=== PATIENT | female | born 1995 | race Two or more races ===

== ENCOUNTER 2017-08-29 09:00 | Emergency (ER) | payer OTHER ==
[~2017-08-29] VITALS: Ht 172.7 cm; Wt 74.8 kg
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
[2017-08-29] MEDS ORDERED: silver sulfADIAZINE 1% CREAM 50GM JAR. TP ONE (09:45)
[2017-08-29 09:46] VITALS: BP 104/66
== END 2017-08-29 09:46 | disposition home or self-care (01) ==
LOC: ER 09:00
DX: T22.211A Burn of second degree of right forearm, initial encounter (principal); X15.2XXA Contact with hotplate, initial encounter; Y93.G3 Activity, cooking and baking; Y99.8 Other external cause status; Y92.89 Other specified places as the place of occurrence of the external cause
CPT/HCPCS: 16020; 99284

== ENCOUNTER 2018-06-07 21:55 | Emergency (ER) | payer OTHER ==
[~2018-06-07] VITALS: Ht 172.7 cm; Wt 74.8 kg
--- NOTE | 2018-06-07 21:58 | ED.ADGEN ---
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 ear pain. Pt. has been attempting to clear ear with Q-tips. Pt. has eroded both ear canals and impacted the wax against Rt TM. Pt. denies any history immunosuppression. Is up-to-date with vaccinations. No recent overseas assignments. Patient assigned to [employer]. Patient normally healthy. Patient follows at [facility]. Review of Systems Review of Systems Constitutional: Denies fever or chills [] Eyes: Denies change in visual acuity, redness, or eye pain [] HENT: Denies nasal congestion or sore throat []complains of right ear pain Respiratory: Denies cough or shortness of breath [] Cardiovascular: No additional information not addressed in HPI [] GI: Denies abdominal pain, nausea, vomiting, bloody stools or diarrhea [] : Denies dysuria or hematuria [] Musculoskeletal: Denies back pain or joint pain [] Integument: Denies rash or skin lesions [] Neurologic: Denies headache, focal weakness or sensory changes [] Endocrine: Denies polyuria or polydipsia [] All other systems were reviewed and found to be within normal limits, except as documented in this note. Family History Family History Noncontributory Current Medications Current Medications Current Medications Medications (Trade) Dose Ordered Sig/Yudi Start Time Stop Time Status Last Admin Dose Admin Cephalexin HCl (Keflex) 500 mg 1X ONCE 06/07/18 23:00 06/07/18 23:00 DC 06/07/18 22:26 500 MG Neomycin/ Polymyxin/ Hydrocortisone (Cortisporin Otic) 2 drop 1X ONCE 06/07/18 23:00 06/07/18 23:00 DC 06/07/18 22:27 2 DROP Allergies Allergies Allergies Coded Allergies Type Severity Reaction Last Updated Verified No Known Drug Allergies 08/29/17 No Physical Exam Physical Exam Constitutional: Well developed, well nourished, moderately acute distress, non- toxic appearance. [] HENT: Normocephalic, atraumatic, bilateral external ears normal, oropharynx moist, no oral exudates, nose normal. []Escalated ear canals and impacted wax right TM Eyes: PERRLA, EOMI, conjunctiva normal, no discharge. [] Neck: Normal range of motion, no tenderness, supple, no stridor. [] Cardiovascular:Heart rate regular rhythm, no murmur [] Lungs & Thorax: Bilateral breath sounds clear to auscultation [] Abdomen: Bowel sounds normal, soft, no tenderness, no masses, no pulsatile masses. [] Skin: Warm, dry, no erythema, no rash. [] Back: No tenderness, no CVA tenderness. [] Extremities: No tenderness, no cyanosis, no clubbing, ROM intact, no edema. [] Neurologic: Alert and oriented X 3, normal motor function, normal sensory function, no focal deficits noted. [] Psychologic: Affect anxious, judgement normal, mood normal. [] Current Patient Data Vital Signs Vital Signs Date Time Temp Pulse Resp B/P (MAP) Pulse Ox O2 Delivery O2 Flow Rate FiO2 06/07/18 22:19 98.1 61 16 98 Room Air EKG EKG [] Radiology/Procedures Radiology/Procedures [] Course & Med Decision Making Course & Med Decision Making Pertinent Labs and Imaging studies reviewed. (See chart for details). Patient not to clean ears with Q-tips. Patient may use [id number] Cerumenex or equivalent. Patient use Cortisporin ear drops 2 drops right ear 4 times a day. Patient take Keflex 500 mg 3 times a day. Follow-up primary care. Take Tylenol and ibuprofen for pain. For marked pain may take Vicoprofen up times a day. Return if any concerns. Stop cleaning ears Q tips. [] Final Impression Final Impression 1. Rt ear pain[] 2. Bilateral ear canal excoriations 3. Impacted wax right TM Dragon Disclaimer Dragon Disclaimer This electronic medical record was generated, in whole or in part, using a voice recognition dictation system. Discharge Summary Visit Information Final Diagnosis Problems Medical Problems: (1) Otitis Status: Acute Brief Hospital Course Allergies Allergies Coded Allergies Type Severity Reaction Last Updated Verified No Known Drug Allergies 08/29/17 No Vital Signs Vital Signs Date Time Temp Pulse Resp B/P (MAP) Pulse Ox O2 Delivery O2 Flow Rate FiO2 06/07/18 22:19 98.1 61 16 98 Room Air Brief Hospital Course Ms. Torrez is a 22 old female who presented with bilateral ear excoriations from cleaning with Q-tips. Has impacted wax on right TM Discharge Information Condition at Discharge: Improved, Stable Disposition/Orders: D/C to Home Dischare Medications Current Medications Cephalexin HCl (Keflex) 500 mg 1X ONCE PO Last administered on 06/07/18at 22:26 ; Admin Dose 500 MG; Start 06/07/18 at 23:00; Stop 06/07/18 at 23:00; Status DC Neomycin/ Polymyxin/ Hydrocortisone (Cortisporin Otic) 2 drop 1X ONCE AD Last administered on 06/07/18at 22:27; Admin Dose 2 DROP; Start 06/07/18 at 23:00; Stop 06/07/18 at 23:00; Status DC Active Scripts Active Keflex (Cephalexin) 500 Mg Capsule 500 Mg PO TID 7 Days Hydrocodone-Ibuprofen 7.5-200 (Hydrocodone/Ibuprofen) 1 Each Tablet 1 Tab PO PRN Q6HRS PRN Dragon Disclaimer This chart was dictated in whole or in part using Voice Recognition software in a busy, high-work load, and often noisy Emergency Department environment. It may contain unintended and wholly unrecognized errors or omissions. SARA MCKEON MD Jun 07, 2018 21:58
[2018-06-07 22:19] VITALS: BP 108/61
[2018-06-07] MEDS ORDERED: CEPH-264 PO (22:20)
[2018-06-07] MEDS ORDERED: HYDR-1179 PO (22:20)
[2018-06-07] MEDS ORDERED: CEPHALEXIN 250 MG CAPSULE PO ONE (23:00)
[2018-06-07] MEDS ORDERED: NEOMYCIN/POLYMYXIN/HC OTIC SUSPENSION 10ML BOTTLE. AD ONE (23:00)
== END 2018-06-07 22:30 | disposition home or self-care (01) ==
LOC: ER 21:55
DX: S00.412A Abrasion of left ear, initial encounter (principal); S00.411A Abrasion of right ear, initial encounter; H66.91 Otitis media, unspecified, right ear; H61.21 Impacted cerumen, right ear; X58.XXXA Exposure to other specified factors, initial encounter; Y93.89 Activity, other specified; Y92.89 Other specified places as the place of occurrence of the external cause; Y99.8 Other external cause status
CPT/HCPCS: 99283

== ENCOUNTER 2018-11-02 20:18 | Emergency (ER) | payer OTHER ==
[~2018-11-02] VITALS: Ht 172.7 cm; Wt 81.2 kg
[~2018-11-02 20:18] MED LIST: CEPH-264 PO; HYDR-1179 PO
[2018-11-02 21:20] VITALS: BP 108/70
[2018-11-02] MEDS ORDERED: CIPR7.5D EACH EAR (21:33)
--- NOTE | 2018-11-02 21:33 | PHYS DOC ---
Past History Past Medical History: No Pertinent History Past Surgical History: No Surgical History Smoking: Non-smoker Alcohol Use: None Drug Use: None Adult General Chief Complaint Chief Complaint: EARACHE/EAR PAIN HPI HPI 23-year-old female presents with left ear pain. The patient [place] [employer] [place]. She has had increasing pain since that time. Her ears now extremely painful. She also has some decreased hearing on that side. She has had otitis externa once previously on the right side. Patient uses Q-tips. She denies fever or chills. Review of Systems Review of Systems Constitutional: Denies fever or chills [] Eyes: Denies change in visual acuity, redness, or eye pain [] HENT: Denies nasal congestion or sore throat. Left ear pain [] Respiratory: Denies cough or shortness of breath [] Cardiovascular: No additional information not addressed in HPI [] GI: Denies abdominal pain, nausea, vomiting, bloody stools or diarrhea [] : Denies dysuria or hematuria [] Musculoskeletal: Denies back pain or joint pain [] Integument: Denies rash or skin lesions [] Neurologic: Denies headache, focal weakness or sensory changes [] Endocrine: Denies polyuria or polydipsia [] All other systems were reviewed and found to be within normal limits, except as documented in this note. Allergies Allergies Allergies Coded Allergies Type Severity Reaction Last Updated Verified No Known Drug Allergies 08/29/17 No Physical Exam Physical Exam Constitutional: Well developed, well nourished, no acute distress, non-toxic appearance. [] HENT: Normocephalic, atraumatic, bilateral external ears normal, oropharynx moist, no oral exudates, nose normal. Left ear canal erythematous and tender to touch [] Eyes: PERRLA, EOMI, conjunctiva normal, no discharge. [] Neck: Normal range of motion, no tenderness, supple, no stridor. [] Cardiovascular:Heart rate regular rhythm, no murmur [] Lungs & Thorax: Bilateral breath sounds clear to auscultation [] Abdomen: Bowel sounds normal, soft, no tenderness, no masses, no pulsatile masses. [] Skin: Warm, dry, no erythema, no rash. [] Back: No tenderness, no CVA tenderness. [] Extremities: No tenderness, no cyanosis, no clubbing, ROM intact, no edema. [] Neurologic: Alert and oriented X 3, normal motor function, normal sensory function, no focal deficits noted. [] Psychologic: Affect normal, judgement normal, mood normal. [] Current Patient Data Vital Signs Vital Signs Date Time Temp Pulse Resp B/P (MAP) Pulse Ox O2 Delivery O2 Flow Rate FiO2 11/02/18 21:20 98.0 58 16 100 Room Air EKG EKG [] Radiology/Procedures Radiology/Procedures [] Course & Med Decision Making Course & Med Decision Making Pertinent Labs and Imaging studies reviewed. (See chart for details) Patient has otitis externa. I will treat her with Ciprodex drops. She is stable for discharge at this time. [] Dragon Disclaimer Dragon Disclaimer This electronic medical record was generated, in whole or in part, using a voice recognition dictation system. Departure Departure: Impression: Primary Impression: Otitis externa, left Disposition: 01 HOME, SELF-CARE Condition: STABLE Referrals: GETACHEW LAW PA-C (PCP) Patient Instructions: Otitis Externa, [id number] Scripts Ciprofloxacin Hcl/Dexameth (CIPRODEX OTIC SUSPENSION) 7.5 Ml Drops.susp 4 DROP EACH EAR BID for otitis externa for 7 Days, #1 BOTTLE Prov: TRISTA GOLD DO 11/02/18 Problem Qualifiers Primary Impression: Otitis externa, left Otitis externa type: swimmer's ear Chronicity: acute Qualified Codes: H60.332 - Swimmer's ear, left ear TRISTA GOLD DO Nov 02, 2018 21:33
== END 2018-11-02 21:38 | disposition home or self-care (01) ==
LOC: ER 20:18
DX: H60.332 Swimmer's ear, left ear (principal)
CPT/HCPCS: 99283